=== PATIENT | female | born 1950 | race Caucasian/White ===

== ENCOUNTER → 2016-06-21 | Outpatient (CLI) | payer MEDICARE, OTHER ==
[~2016-06-21] MED LIST: AMBIEN 5MG TABLE5 MG PO; ASPIRIN 81M81 MG/TA2 PO; CALCIUM + D 5001 TAB PO; ELIQUIS 5MG PO; ELITE MAGNESIUM1 TAB PO; MULTAQ400 M1 PO; OMEGA 31000 MG PO; PRADAXA75 MG PO; PROTONIX 40MG T40 MG PO; TOPROL XL 25MG25 MG PO
== END ==
LOC: COL.CARD 11:23
DX: I48.0 Paroxysmal atrial fibrillation (principal)

== ENCOUNTER → 2016-08-01 | Outpatient (CLI) | payer MEDICARE, OTHER | LOC: MC.RAD 07-18 13:20 | DX: Z12.31 Encounter for screening mammogram for malignant neoplasm of breast (principal) ==

== ENCOUNTER → 2016-10-18 | Outpatient (CLI) | payer MEDICARE, OTHER | LOC: COL.CARD 10:30 | DX: I48.91 Unspecified atrial fibrillation (principal); R42 Dizziness and giddiness ==

== ENCOUNTER → 2016-11-12 | Outpatient (CLI) | payer MEDICARE, OTHER | LOC: COL.CARD 14:30 | DX: I48.0 Paroxysmal atrial fibrillation (principal) ==

== ENCOUNTER 2017-03-19 13:15 | Outpatient (RCR) | payer MEDICARE, OTHER | END 2017-04-16 12:57 | disposition home or self-care (01) | LOC: MKS.ESL.PT 13:15 | DX: R42 Dizziness and giddiness (principal) | CPT/HCPCS: G8990-GP; G8991-GP; G8992-GP ==

== ENCOUNTER → 2017-10-10 | Outpatient (CLI) | payer MEDICARE, OTHER | LOC: MC.RAD 09-03 13:40 | DX: Z12.31 Encounter for screening mammogram for malignant neoplasm of breast (principal) ==

== ENCOUNTER → 2018-12-05 | Outpatient (CLI) | payer MEDICARE, OTHER | LOC: MC.RAD 11:38 | DX: Z12.31 Encounter for screening mammogram for malignant neoplasm of breast (principal) ==

== ENCOUNTER 2019-03-17 10:27 | Day surgery (SDC) | payer MEDICARE, OTHER ==
[~2019-03-17] VITALS: Ht 172.8 cm; Wt 93.0 kg
[2019-03-17] MEDS ORDERED: TAMBOCOR150 MG PO (10:53)
[2019-03-17] MEDS ORDERED: XARELTO20 MG PO (10:54)
[2019-03-17] MEDS ORDERED: ZIOPTAN OU (10:57)
[2019-03-17 11:45] LABS: INR 1.7 (0.8-3.0); PROTHROMBIN TIME 20.3 SECONDS (9.7-12.8)
[2019-03-17 11:58] VITALS: BP 139/98; PULSE 104; TEMP 97.2
[2019-03-17 11:59] LABS: POTASSIUM 4.2 mmol/L (3.4-5.0)
[2019-03-17 12:35] LABS: THYROID STIMULATING HORMONE 1.43 uIU/mL (0.465-4.680)
[2019-03-17 13:30] VITALS: BP 124/66; PULSE 67
--- NOTE | 2019-03-17 13:30 | NUR ---
EAMON/CV complete and report received from Jeff chemical laboratory chief RN. Pt barry EAMON/CV well. Pt resting in bed, at bedside.
[2019-03-17 13:45] VITALS: BP 128/83; PULSE 66
[2019-03-17 14:00] VITALS: BP 123/68; PULSE 69
[2019-03-17 14:15] VITALS: BP 118/76; PULSE 68
[2019-03-17 14:30] VITALS: BP 125/75; PULSE 67
--- NOTE | 2019-03-17 14:45 | NUR ---
Pt has ambulated, voided and barry PO intake s n/v. PIV removed with catheter intact.
--- NOTE | 2019-03-17 15:05 | NUR ---
Pt discharged per w/c by nurse with .
== END 2019-03-17 15:23 | disposition home or self-care (01) ==
LOC: COL.CAR 10:27
PROVIDERS: Internal Medicine Interventional Cardiology
DX: I48.3 Typical atrial flutter (principal); Z79.899 Other long term (current) drug therapy; Z79.82 Long term (current) use of aspirin; Z82.49 Family history of ischemic heart disease and other diseases of the circulatory system; Z80.9 Family history of malignant neoplasm, unspecified; K21.9 Gastro-esophageal reflux disease without esophagitis; E66.9 Obesity, unspecified; Z68.31 Body mass index [BMI] 31.0-31.9, adult; G47.30 Sleep apnea, unspecified
CPT/HCPCS: J2704; J7030

== ENCOUNTER → 2020-01-21 | Outpatient (CLI) | payer MEDICARE, OTHER ==
[~2020-01-21] MED LIST changes: +TAMBOCOR150 MG PO; +XARELTO20 MG PO; +ZIOPTAN OU
== END ==
LOC: MC.RAD 10:55
DX: Z12.31 Encounter for screening mammogram for malignant neoplasm of breast (principal)

== ENCOUNTER → 2021-03-02 | Outpatient (CLI) | payer MEDICARE, OTHER | LOC: MC.RAD 13:17 | DX: Z12.31 Encounter for screening mammogram for malignant neoplasm of breast (principal) ==

== ENCOUNTER → 2021-10-04 | Outpatient (CLI) | payer MEDICARE, OTHER ==
[2021-10-04 18:22] LABS: CALCIUM 8.7 mg/dL (8.4-10.2); CREATININE, serum 0.97 mg/dL (0.57-1.11); POTASSIUM 4.4 mmol/L (3.5-4.5)
== END ==
LOC: ZCOL.LAB 17:40
PROVIDERS: Internal Medicine Interventional Cardiology
DX: I48.0 Paroxysmal atrial fibrillation (principal)

== ENCOUNTER 2022-01-15 15:07 | Outpatient (RCR) | payer MEDICARE, OTHER | END 2022-01-17 | disposition home or self-care (01) | LOC: COL.CR | DX: I50.22 Chronic systolic (congestive) heart failure (principal) ==

== ENCOUNTER 2022-06-18 15:13 | Outpatient (RCR) | payer MEDICARE, OTHER | END 2022-06-19 | disposition home or self-care (01) | LOC: COL.CR | DX: I50.22 Chronic systolic (congestive) heart failure (principal) ==

== ENCOUNTER → 2023-08-23 | Outpatient (CLI) | payer MEDICARE, OTHER | LOC: MC.RAD 08:56 | DX: N63.10 Unspecified lump in the right breast, unspecified quadrant (principal) ==